=== PATIENT | female | born 2000 | race Caucasian/White ===

== ENCOUNTER 2024-08-13 12:14 | Outpatient (CLI) | payer OTHER | END 2024-08-13 12:15 | disposition home or self-care (01) | LOC: BICULT 12:14 | PROVIDERS: ATTEND Advanced Practice Midwife | DX: Z34.92 Encounter for supervision of normal pregnancy, unspecified, second trimester (principal); Z3A.26 26 weeks gestation of pregnancy | CPT/HCPCS: 76805 ==

== ENCOUNTER 2025-05-27 09:06 | Emergency (ER) | payer OTHER, MEDICAID | END 2025-05-27 10:39 | disposition home or self-care (01) | LOC: ERS 09:06 | DX: S80.12XA Contusion of left lower leg, initial encounter (principal); S00.502A Unspecified superficial injury of oral cavity, initial encounter; V89.0XXA Person injured in unspecified motor-vehicle accident, nontraffic, initial encounter | CPT/HCPCS: 99283 ==